=== PATIENT | male | born 2000 | race Caucasian/White ===

== ENCOUNTER 2025-04-03 06:03 | Day surgery (SDC) | payer OTHER, SELFPAY ==
[2025-04-03 06:40] VITALS: BMI 28.8
[2025-04-03 06:50] VITALS: BP 119/79; BMI 28.8
[2025-04-03] MEDS: NORMOSOL-R/PLASMALYTE-A 1000 IV (06:50)
[2025-04-03] MEDS: TYLENOL 1000 MG PO (07:08)
[2025-04-03 08:31] VITALS: BP 117/75; BP 119/79
[2025-04-03 08:47] VITALS: BP 125/56
[2025-04-03 09:00] VITALS: BP 108/59
[2025-04-03 09:15] VITALS: BP 122/68
[2025-04-03 09:30] VITALS: BP 121/64
== END 2025-04-03 09:48 | disposition home or self-care (01) ==
LOC: SDS 06:03
PROVIDERS: ATTENDING PHYSICIAN Surgery
DX: L05.01 Pilonidal cyst with abscess (principal)
CPT/HCPCS: 11771; 88304